=== PATIENT | female | born 1970 | race Two or more races ===

== ENCOUNTER 2024-05-14 01:59 | Emergency (ER) | payer MEDICAID, OTHER ==
[~2024-05-14] VITALS: Ht 154.9 cm; Wt 99.5 kg
[2024-05-14 04:51] LABS: Basophils # (auto) 0.1 10 ^3/uL (0-0.2); Basophils % (auto) 1.3 % (0.0-2.0); Eosinophils # (auto) 0.3 10 ^3/uL (0-0.8); Eosinophils % (auto) 4.1 % (0.0-7.0); Hematocrit 36.9 % (36.0-46.0); Hemoglobin 12.6 g/dL (12.2-16.2); Lymphocytes # (auto) 2.7 10 ^3/uL (0.4-5.4); Lymphocytes % (auto) 32.1 % (10.0-50.0); Mean Corpuscular Hemoglobin 30.5 pg (28.0-32.0); Mean Corpuscular Hgb Conc. 34.2 g/dL (32.0-36.0); Mean Corpuscular Volume 89.2 fL (80.0-100.0); Monocytes # (auto) 0.6 10 ^3/uL (0-1.3); Monocytes % (auto) 7.5 % (0.0-12.0); Neutrophils # (auto) 4.7 10 ^3/uL (1.6-8.6); Red Blood Cells 4.14 10^6/uL (4.0-5.20); Red Cell Distribution Width 15.2 % (11.8-14.3); White Blood Cell 8.6 10^3/uL (4.4-10.8)
[2024-05-14 05:01] LABS: Chloride 110 mmol/L (98-107); Sodium 142 mmol/L (136-145)
[2024-05-14 05:02] LABS: Anion Gap 7 (5-15); Carbon Dioxide 25 mmol/L (20-30)
[2024-05-14 05:03] LABS: Calcium 9.4 mg/dL (8.7-10.4)
[2024-05-14 05:07] LABS: BUN/Creatinine Ratio 22.4 (10.0-20.0); Blood Urea Nitrogen 15 mg/dL (9-23); Glucose 87 mg/dL (74-106)
[2024-05-14 07:56] VITALS: BP 137/81; PULSE 82; RESP 16; TEMP 97.8; O2SAT 97
== END 2024-05-14 07:59 | disposition home or self-care (01) ==
LOC: ER 01:59
DX: R60.0 Localized edema (principal); Z88.6 Allergy status to analgesic agent
CPT/HCPCS: 36415; 71046; 80048; 83880; 84484; 85025

== ENCOUNTER 2025-06-08 14:52 | Emergency (ER) | payer MEDICAID, OTHER ==
[~2025-06-08] VITALS: Ht 157.5 cm; Wt 80.0 kg
--- NOTE | 2025-06-08 16:38 | ED.PDOC ---
History of Present Illness HPI Comments 54 y/o F, presents to the ED for CC of insect bite. Patient states, she felt getting bite by something this morning (06/08/25) and now has developed localized erythema and right lower leg tightness. Patient reports, feeling febrile following insect bite. At this time patient denies further symptoms or modifying factors. Chief Complaint: Insect Bite Time Seen by MD: 16:00 Primary Care Provider: None Reviewed Notes: Nurses Notes, Medications, Allergies Allergies: Coded Allergies: Amoxicillin (Verified Allergy, Unknown, 06/08/25) Home Meds Active Scripts Hydrocodone-Acetaminophen (Hydrocodone Bitartrate/AC 5-325 mg) 1 Tab Tab, 1 TAB PO Q8HP PRN for 5 Days, #15 TAB Prov:MEENU RUTHERFORD MD 06/08/25 Clindamycin Hcl (CLEOCIN) 150 Mg Cap, 1 CAP PO TID, #30 CAP Prov:MEENU RUTHERFORD MD 06/08/25 Information Source: Patient Mode of Arrival: Ambulatory Severity: Moderate Timing: Hours Duration: Since onset Prehospital treatment: None Past Medical History PAST MEDICAL HISTORY: Denies Surgical History: Denies all surgeries 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 TIRE MOLD ENGRAVER History Family History Family History: Family hx of heart gómez Social History Smoker: Non-Smoker Alcohol: Denies ETOH Use Drugs: Denies Drug Use Lives In: Home Constitutional: denies: chills, diaphoresis, fatigue, fever, malaise, sweats, weakness, others EENTM: denies: blurred vision, double vision, ear bleeding, ear discharge, ear drainage, ear pain, ear ringing, eye pain, eye redness, hearing loss, mouth pain, mouth swelling, nasal discharge, nose bleeding, nose congestion, nose pain, photophobia, tearing, throat pain, throat swelling, voice changes, others Respiratory: denies: cough, hemoptysis, orthopnea, SOB at rest, shortness of breath, SOB with excertion, stridor, wheezing, others Cardiovascular: denies: chest pain, dizzy spells, diaphoresis, Dyspnea on exertion, edema, irregular heart beat, left arm pain, lightheadedness, palpitations, PND, syncope, others Gastrointestinal: denies: abdomen distended, abdominal pain, blood streaked bowels, constipated, diarrhea, dysphagia, difficulty swallowing, hematemesis, melena, nausea, poor appetite, poor fluid intake, rectal bleeding, rectal pain, vomiting, others Genitourinary: denies: abnormal vagina bleeding, burning, dyspareunia, dysuria, flank pain, frequency, hematuria, incontinence, pain, , vagina discharge, urgency, others Neurological: denies: dizziness, fainting, headache, left sided numbness, left sided weakness, numbness, paresthesia, pre-existing deficit, right sided numbness, right sided weakness, seizure, speech problems, tingling, tremors, weakness, others Musculoskeletal: denies: back pain, gout, joint pain, joint swelling, muscle pain, muscle stiffness, neck pain, others Integumetry: reports: others (erythema right lower leg); denies: bruises, change in color, change in hair/nails, dryness, laceration, lesions, lumps, rash, wounds Allergic/Immunocompromised: denies: Difficulty Healing, Frequent Infections, Hives, Itching, others Hematologic/Lymphatic: denies: anemia, blood clots, easy bleeding, easy bruising, swollen glands, others Endocrine: denies: excessive hunger, excessive sweating, excessive thirst, excessive urination, flushing, intolerance to cold, intolerance to heat, unexplained weight gain, unexplained weight loss, others Psychiatric: denies: anxiety, bipolar disorder, depression, hopeless, panic disorder, schizophrenia, sleepless, suicidal, others All Other Systems: Reviewed and Negative Physical Exam General Appearance: No Apparent Distress HEENT: Normal ENT Inspection, Pharynx Normal, TMs Normal Neck: Full Range of Motion, Non-Tender, Normal, Normal Inspection Respiratory: Chest Non-Tender, Lungs Clear, No Accessory Muscle Use, No Respiratory Distress, Normal Breath Sounds Cardiovascular: No Edema, No JVD, No Murmur, No Gallop, Normal Peripheral Pulses, Regular Rate/Rhythm Breast Exam: Deferred Gastrointestinal: No Organomegaly, Non Tender, No Pulsatile Mass, Normal Bowel Sounds, Soft Genitalia: Deferred Pelvic: Deferred Rectal: Deferred Extremities: No calf tenderness, Normal capillary refill, No pedal edema Musculoskeletal : Apperance: Normal Neurologic: Alert, 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 Was a procedure done?: No Differential Dx Considerations may include: papular urticaria X-Ray, Labs, Meds, VS Vital Signs Date Time Temp Pulse Resp B/P (MAP) Pulse Ox O2 Delivery O2 Flow Rate FiO2 06/08/25 15:01 97.7 92 18 151/99 96 97.7 Current Medications Medications (Trade) Dose Ordered Sig/Jose F Route Start Time Stop Time Status Last Admin Clindamycin HCl (Cleocin Capsule) 150 mg ONCE ONCE PO 06/08/25 16:30 06/08/25 16:31 DC 06/08/25 16:51 Acetaminophen/ Hydrocodone Bitart ([place] 5/325MG Tab) 1 tab ONCE ONCE PO 06/08/25 16:30 06/08/25 16:31 DC 06/08/25 16:52 US: Impression: 1. No left deep venous thrombosis. 2. If clinical concern/symptoms persist or worsen, short-interval follow-up study is suggested. At this time the patient was given clindamycin 150 mg by mouth The patient was also given [place] for the pain The patient is being discharged with a prescription of clindamycin as well as a prescription of [place] The patient will return to the emergency department's condition worsens. Images Reviewed?: Images reviewed and evaluated by me Time of 1ST Reevaluation: 16:30 Reevaluation 1ST: Unchanged Patient Education/Counseling: Diagnosis, Treatment, Prognosis, Need For Follow Up Family Education/Counseling: No Family Present SEPSIS Sepsis Screen Date sepsis recognized/suspect: Jun 08, 2025 Time Sepsis recognized/suspect: 1501 Recent Procedure: No On Antibiotic Therapy: No Respiratory Rate >20: No Heart Rate >90: Yes Temp<36 C (96.8 F) or >38.3 C: No SBP <90 or MAP <65 mmHG: No New Acute Mental Status Change: No Is the patient on CPAP, BIPAP,: No Physician Orders Lt Lower Dvt (06/08/25 16:20) Vital Signs Date Time Temp Pulse Resp B/P (MAP) Pulse Ox O2 Delivery O2 Flow Rate FiO2 06/08/25 15:01 97.7 92 18 151/99 96 97.7 Medications Medications Dose Ordered Sig/Jose F Route Start Time Stop Time Status Last Admin Dose Admin Acetaminophen/ Hydrocodone Bitart 1 tab ONCE ONCE PO 06/08/25 16:30 06/08/25 16:31 DC 06/08/25 16:52 Clindamycin HCl 150 mg ONCE ONCE PO 06/08/25 16:30 06/08/25 16:31 DC 06/08/25 16:51 Departure 1 Departure Time of Disposition: 17:43 Impression: Primary Impression: Left leg cellulitis Disposition: HOME / SELF CARE / HOMELESS Condition: Fair e-Prescriptions Hydrocodone-Acetaminophen (Hydrocodone Bitartrate/AC 5-325 mg) 1 Tab Tab 1 TAB PO Q8HP PRN for 5 Days, #15 TAB Prov: MEENU RUTHERFORD MD 06/08/25 Clindamycin Hcl (CLEOCIN) 150 Mg Cap 1 CAP PO TID, #30 CAP Prov: MEENU RUTHERFORD MD 06/08/25 Discharged With: Self Critical Care Note Critical Care Time?: No Stability Stability form required: No Heart Score Heart Score: Heart Score Response (Comments) Value History N/A 0 EKG N/A 0 Age N/A 0 Risk Factors N/A 0 Troponin N/A 0 Total 0 I personally scribed for MEENU RUTHERFORD MD ([email or web address]) on 06/08/25 at 16:38. Electronically submitted by Maria L Hughes ([email or web address]). I personally scribed for MEENU RUTHERFORD MD ([email or web address]) on 06/08/25 at 17:39. Electronically submitted by Maria L Hughes ([email or web address]). MEENU RUTHERFORD MD Jun 08, 2025 16:38
[2025-06-08] MEDS: CLINDAMYCIN HCL 150 MG CAP PO ONE (16:51)
[2025-06-08] MEDS: HYDROcodone-ACET 5/325MG TAB PO ONE (16:52)
--- NOTE | 2025-06-08 17:33 | DVH ---
Clinical History: pain Comparison: None Technique: Duplex Doppler evaluation of the deep venous system of the left lower extremity from the common femor al vein to the popliteal vein including color Doppler and spectral/pulsed waveform analysis was perfo rmed. Findings: The common femoral vein demonstrates appropriate compressibility and waveform variability. There is compressibility/patency of the great saphenous vein at the proximal thigh. The femoral vein demonstrates appropriate compressibility and waveform variability. The deep femoral vein demonstrates appropriate compressibility and waveform variability. The popliteal vein demonstrates appropriate compressibility and waveform variability. There is normal compressibility at the tibioperoneal trunk. Impression: 1. No left deep venous thrombosis. 2. If clinical concern/symptoms persist or worsen, short-interval follow-up study is suggested.
[2025-06-08] MEDS ORDERED: HYDR-4902 PO (17:45)
[2025-06-08] MEDS ORDERED: CLIN150C PO (17:45)
[2025-06-08 18:25] VITALS: BP 168/97; PULSE 91; RESP 16; TEMP 98.3; O2SAT 97
== END 2025-06-08 18:28 | disposition home or self-care (01) ==
LOC: ER 14:52
DX: L03.116 Cellulitis of left lower limb (principal); Z88.0 Allergy status to penicillin
CPT/HCPCS: 93971